=== PATIENT | female | born 1960 | race Caucasian/White ===

== ENCOUNTER 2022-09-09 09:01 | Emergency (ER) | payer MEDICARE, MEDICAID, SELFPAY ==
--- NOTE | ~2022-09-09 | XR_ITS ---
EXAMINATION: XR chest 2V DATE: 09/09/2022 09:51 INDICATION: Cough and wheezing. TECHNIQUE: Frontal and lateral views of the chest were obtained on 3 radiographs. COMPARISON: Chest CT 07/01/2019 FINDINGS: A calcified right lung nodule and calcified right hilar lymph nodes are consistent with old granulomatous disease. No pleural effusion or pneumothorax. The heart size is normal. IMPRESSION: 1. No acute cardiopulmonary disease. Reviewed, dictated and finalized at location A.
[2022-09-09 09:22] VITALS: BP 154/74; PULSE 112; RESP 22; TEMP 36.8; O2SAT 99
--- NOTE | 2022-09-09 09:39 | ED.GENADULT ---
HPI - General Adult General Chief complaint: Upper Respiratory Infection Stated complaint: Chest Congestion Source: patient Mode of arrival: ambulatory Limitations: no limitations History of Present Illness HPI narrative: Patient presents for evaluation of sick symptoms. 5 days ago she developed a sore, scratchy throat. Approximately 2 days ago she developed a productive cough of yellow sputum. She also has nasal congestion and yellow drainage from her nares. She has some mild SOB, chills and nausea. She denies any fever, vomiting or diarrhea. Her nieces currently have bronchitis and she spends quite a bit of time with them. She took a home COVID test yesterday which was negative. She did have COVID in 2020. No history of COVID vaccination. She has not received her flu shot this year. She tried taking DayQuil with no improvement in her symptoms or after. She does not smoke. She is diabetic. Last A1c 6.7. No additional complaints or concerns. Related Data Home Medications Medication Instructions Recorded Confirmed aspirin 81 mg tablet,delayed 81 mg PO DAILY 09/09/22 09/09/22 release (Adult Low Dose Aspirin) dulaglutide 3 mg/0.5 mL 3 mg subcut WEEKLY 09/09/22 09/09/22 subcutaneous pen injector (Trulicity) glimepiride 2 mg tablet 2 mg PO DAILY 09/09/22 09/09/22 hydrochlorothiazide 12.5 mg capsule 12.5 mg PO DAILY 09/09/22 09/09/22 levothyroxine 175 mcg tablet 175 mcg PO DAILY 09/09/22 09/09/22 losartan 100 mg tablet 100 mg PO DAILY 09/09/22 09/09/22 Allergies Allergy/AdvReac Type Severity Reaction Status Date / Time Penicillins Allergy Severe Swelling Verified 09/09/22 09:24 codeine Allergy Unknown Rash Verified 01/05/19 15:21 tetanus toxoid, adsorbed Allergy Unknown Rash Verified 09/09/22 09:24 Review of Systems Review of Systems: CONSTITUTIONAL: Reports chills. Denies fever or sweats. EYES: Denies visual changes, redness, or discharge. ENT: Reports sinus congestion, thick yellow drainage, sore and scratchy throat and otalgia CARDIOVASCULAR: Denies chest pain, palpitations, or edema. RESPIRATORY: Reports cough. Denies dyspnea. GASTROINTESTINAL: Reports nausea. Denies abdominal pain, vomiting, or diarrhea. GENITOURINARY: Denies dysuria or hematuria. SKIN: Denies rash or itching. MUSCULOSKELETAL: Denies back pain, joint pain, or myalgia. NEUROLOGIC: Denies headache, numbness, dizziness, or weakness. PSYCHIATRIC: Denies anxiety or depression. [facility] Past Medical History Medical History (Updated 09/09/22 @ 10:21 by Brandan Garcia [facility], ) Diabetes Rita's disease Hypertension Surgical History Surgical History (Updated 09/09/22 @ 10:21 by Brandan Garcia [facility], ) History of hysterectomy Hx of cholecystectomy Family History Family History (Updated 09/09/22 @ 10:20 by Brandan Garcia [facility], ) Mother Family history non-contributory Social History Social History (Updated 09/09/22 @ 10:20 by Brandan Garcia [facility], ) Smoking status: Never smoker Alcohol intake: never Substance use: never Living arrangements: alone Gender identity (if verbalized by the patient): Female Sexual Orientation (if Verbalized by the Patient): Straight or Heterosexual Exam Narrative: GENERAL: Well-appearing, well-nourished, and in no acute distress. HEAD: Normocephalic, atraumatic. EYES: PERRLA and EOMI. ENT: Nares clear, no rhinorrhea or epistaxis. Mucous membranes moist. Oropharynx without tonsillar hypertrophy exudate or other lesions. Bilateral TMs pearly moreno nonbulging NECK: Supple. No adenopathy or masses. No carotid bruits or JVD CHEST: Cough present on exam. Rales appreciated in bilateral upper lobes posteriorly no respiratory distress. No wheezes HEART: Regular rate and rhythm. No murmur heard. Normal peripheral pulses. ABDOMEN: Soft, nontender, nondistended, normal active bowel sounds. EXTREMITIES: Normal range of motion. No edema. SKIN: Warm, dry, no rash. BOB
== END 2022-09-09 10:20 | disposition home or self-care (01) ==
PROVIDERS: Emergency Provider Nurse Practitioner; PCP Nurse Practitioner Adult Health
DX: J06.9 Acute upper respiratory infection, unspecified (principal); Z20.822 Contact with and (suspected) exposure to COVID-19; Z86.16 Personal history of COVID-19; Z79.82 Long term (current) use of aspirin; E11.9 Type 2 diabetes mellitus without complications; I10 Essential (primary) hypertension; E06.3 Autoimmune thyroiditis
CPT/HCPCS: 71046; 87426; 87804; 99203; C9803; G0463

== ENCOUNTER 2025-09-21 11:28 | Outpatient (CLI) | payer MEDICARE, MEDICAID, SELFPAY ==
[2025-09-21 18:58] LABS: Hematocrit 42.3 % (37.0-47.0); Hemoglobin 13.2 g/dL (12.0-15.0); Immature Granulocyte Percent A 0.4 % (0-0.5); Lymphocytes Absolute Auto 3.19 K/mm3 (0.9-3.2); Mean Corpuscular HGB Conc 31.2 g/dl (32-36); Mean Corpuscular Hemoglobin 30.4 pg (26-34); Mean Corpuscular Volume 97.5 fl (80-100); Nucleated Red Blood Cells Absolute Auto 0.000 K/mm3 (0.0-0.012); Nucleated Red Blood Cells Perc 0.0 % (0.0-0.2); Platelet Count Result 319 k/mm3 (150-375); Red Blood Count 4.34 M/mm3 (4.2-5.4); White Blood Count 11.3 K/mm3 (4.5-10.0)
[2025-09-21 20:43] LABS: Thyroid Stimulating Hormone 0.405 uIU/mL (0.465-4.680)
[2025-09-21 22:23] LABS: MALB Creatinine Ratio 8.3 mg/g (0-30)
[2025-09-21 22:45] LABS: Alanine Aminotransferase 16 U/L (6-35); Albumin Level 4.6 g/dL (3.5-5.1); Alkaline Phosphatase 90 U/L (38-126); Anion Gap 12 mmol/L (4-12); Aspartate Amino Transferase 50 U/L (14-36); Bilirubin,Total 0.3 mg/dL (0.2-1.3); Blood Urea Nitrogen 18 mg/dL (7-17); Calcium 9.8 mg/dL (8.4-10.2); Carbon Dioxide 25 mmol/L (22-30); Chloride 102 mmol/L (98-107); Cholesterol 225 mg/dL (0-200); Estimated Glomerular Filt Rate > 60; Glucose 123 mg/dL (65-110); HDL Direct 34 mg/dL; Potassium 4.1 mmol/L (3.4-5.0); Sodium 139 mmol/L (137-145); Total Protein 8.5 g/dL (6.3-8.2); Triglycerides 265 mg/dL (<150)
[2025-09-21 23:56] LABS: Hemoglobin A1C 6.0 % (<5.7)
== END 2025-09-21 11:29 | disposition home or self-care (01) ==
LOC: ANHBWCLAB 11:30
PROVIDERS: PCP Nurse Practitioner Adult Health; Visit Provider Nurse Practitioner Adult Health
DX: E11.9 Type 2 diabetes mellitus without complications (principal); I10 Essential (primary) hypertension; E06.3 Autoimmune thyroiditis
CPT/HCPCS: 36415; 80053; 80061; 82043; 82565; 83036; 84443; 85025